=== PATIENT | male | born 1985 | race Caucasian/White ===

== ENCOUNTER → 2016-09-18 | Outpatient (CLI) | payer OTHER ==
--- NOTE | 2016-09-18 12:25 | DIAGNOSTIC IMAGING REPORT ---
LEFT SHOULDER 3 VIEWS HISTORY: Left shoulder pain. INJURY OF SHOULDER L COMPARISON: None. FINDINGS: There is no fracture or dislocation. Soft tissues are unremarkable. No radiopaque foreign bodies. The left clavicle is intact. IMPRESSION: No fracture or dislocation within the left shoulder. Electronically signed by: Trevor Venegas M.D. 09/18/2016 12:24 PM Dictated Date/Time: 09/18/2016 12:21 PM
== END | disposition home or self-care (01) ==
LOC: C.LABPVFM 11:55
PROVIDERS: ATTEND Nurse Practitioner
DX: S49.92XA Unspecified injury of left shoulder and upper arm, initial encounter (principal); X58.XXXA Exposure to other specified factors, initial encounter

== ENCOUNTER → 2016-10-26 | Outpatient (CLI) | payer OTHER ==
[2016-10-26 17:45] LABS: ALT/SGPT 52 U/L (12-78); BLOOD UREA NITROGEN 10 mg/dl (7-18); BUN/CREATININE RATIO 9.4 (10-20); CALCIUM 9.1 mg/dl (8.5-10.1); CARBON DIOXIDE 24 mmol/L (21-32); CHLORIDE 108 mmol/L (98-107); GLUCOSE 94 mg/dl (70-99); POTASSIUM 3.7 mmol/L (3.5-5.1); SODIUM 142 mmol/L (136-145)
[2016-10-26 18:05] LABS: ALKALINE PHOSPHATASE 66 U/L (45-117); AST/SGOT 28 U/L (15-37)
== END | disposition home or self-care (01) ==
LOC: C.LABPVFM 15:32
PROVIDERS: ATTEND Nurse Practitioner
DX: G43.109 Migraine with aura, not intractable, without status migrainosus (principal); R94.5 Abnormal results of liver function studies

== ENCOUNTER → 2017-03-30 | Outpatient (CLI) | payer OTHER ==
[2017-04-03 14:29] LABS: CHLAMYDIA TRACH RNA*** NOT DETECTED (NOT DETECTED); GC (NEIS GONORRHOEAE)RNA** NOT DETECTED (NOT DETECTED)
== END | disposition home or self-care (01) ==
LOC: C.LABPVFM 11:04
PROVIDERS: ATTEND Nurse Practitioner
DX: R30.0 Dysuria (principal); Z20.2 Contact with and (suspected) exposure to infections with a predominantly sexual mode of transmission

== ENCOUNTER 2017-11-14 00:12 | Emergency (ER) | payer OTHER ==
[~2017-11-14] VITALS: Ht 177.8 cm; Wt 80.0 kg
[~2017-11-14 00:12] MED LIST: ATV/1 PO; BUPR-79 PO; GABA-112 PO; LISD50CA4 PO; OMEP40CA41 PO; ZOLP10TA PO
[2017-11-14] MEDS ORDERED: SNT/10 PO (00:41)
[2017-11-14 00:43] VITALS: Ht 177.8 cm; Wt 80.0 kg
[2017-11-14] MEDS ORDERED: DIPHTHERIA/TETANUS/PERTUSSIS 0.5 ML SYR/VIAL IM. ONE (00:45)
[2017-11-14] MEDS ORDERED: LIDOCAINE/EPINEPHRINE 1% 20 ML VIAL INFIL ONE (00:45)
--- NOTE | 2017-11-14 00:50 | EMERGENCY ROOM VISIT NOTE ---
History Report prepared by Sofía: Chivo Ashford Under the Supervision of: Dr. Leonides Marques M.D. First contact with patient: 00:21 Chief Complaint: MENTAL HEALTH EVALUATION Stated Complaint: LACERATION History of Present Illness The patient is a 32 year old male who presents to the Emergency Room with complaints of an episode of intentionally cutting his left wrist tonight. The patient states that came into the emergency room tonight because he cut his left wrist. He notes that he did not want to do cut himself, but did it because he hates his tattoo. He reports that he was not feeling sad when he cut himself , and was not trying to kill himself. The patient states that he has a history of depression and has tried to kill himself once in the past. He notes that he has cut himself in the past but has never been admitted for depression/cutting. He reports that his previous lacerations have become infected multiple times. The patient states that he was drinking alcohol tonight but has not taken any drugs. The patient also complains of left elbow pain for the past few days. He denies any homicidal ideations and hallucinations. He notes that he takes Vyvanse, sonata, Lanturil, and lorazepam. Source of History: patient Onset: tonight Position: other (left wrist) Quality: other (intentional cutting) Timing: other (an episode) Note: The patient also complains of left elbow pain. He denies any homicidal ideations and hallucinations. Review of Systems See HPI for pertinent positives & negatives. A total of 10 systems reviewed and were otherwise negative. Past Medical & Surgical Medical Problems: (1) Alcohol abuse (2) Current drinker of alcohol (3) History of - depression (4) History of - suicidal ideation (5) Pancreatitis Family History No pertinent family history No pertinent family history stated. Social History Smoking Status: Current Every Day Smoker Alcohol Use: heavy Drug Use: marijuana Marital Status: single Housing Status: unknown Occupation Status: unemployed Current/Historical Medications Scheduled Bupropion (Wellbutrin Sr), 150 MG PO DAILY Cephalexin Monohydrate (Keflex), 500 MG PO QID Lisdexamfetamine Dimesylate (Vyvanse), 50 MG PO DAILY Omeprazole (Prilosec), 40 MG PO DAILY Zaleplon (Sonata), 20 MG PO HS Scheduled PRN Lorazepam (Ativan), 1 MG PO TID PRN for Anxiety/Agitation Allergies Coded Allergies: BEE STING (Verified Allergy, Severe, SHORTNESS OF BREATH, 11/14/17) SOAPCLEAN (Verified Allergy, Intermediate, HOSPITAL LAUNDRY DETERGENT-RASH , 11/14/17) Uncoded Allergies: PINE TREES (Allergy, Severe, SOB-HIVES AND RASH IF TOUCHES TREES, 06/09/17) Physical Exam Vital Signs Date Time Temp Pulse Resp B/P (MAP) Pulse Ox O2 Delivery O2 Flow Rate FiO2 11/14/17 04:41 80 18 113/70 96 11/14/17 03:00 80 18 92/43 94 Room Air 11/14/17 00:43 104 22 139/76 94 Room Air Physical Exam GENERAL: Patient is intoxicated appearing and in no acute distress, smells heavily of alcohol. EYES: No scleral icterus, unremarkable pupils. ENT: Mucous membranes moist, no nasal congestion. NECK: No masses appreciated, no meningismus, trachea is midline. RESPIRATORY: No dyspnea. Clear to auscultation and equal bilaterally. No wheeze , no rhonchi. CARDIOVASCULAR: Regular rate and rhythm. No murmurs, rubs, gallops appreciated. GASTROINTESTINAL: Abdomen soft, nontender, no peritonitis. Bowel sounds positive. No masses appreciated. BACK: No midline tenderness, no CVA tenderness EXTREMITIES: No cyanosis, no edema. Pain with ROM of right elbow without tenderness to palpation. NEUROLOGIC: Alert and oriented, no acute motor or sensory deficits, no focal weakness, cranial nerves grossly intact. SKIN: No rash, no jaundice, no diaphoresis. 7cm laceration to fatty tissue of left volar forearm with mild venous oozing, abrasion of left AR area (states that this was trauma related), multiple old healed lacerations on left forearm, distal N/V intact. PSYCH: Admits self harm, admits that he is drunk and wants to get rid of his tattoo, admits depression at baseline, denies suicidal/homicidal ideations. Medical Decision & Procedures ER Provider Diagnostic Interpretation: Radiology results and stated below per my review and interpretation: 3 VIEW RIGHT ELBOW X-RAY: No fracture. No dislocation. No foreign body. Laboratory Results 11/14/17 00:48 Red Blood Count 4.96, Mean Corpuscular Volume 90.9, Mean Corpuscular Hemoglobin 32.5, Mean Corpuscular Hemoglobin Concent 35.7, Mean Platelet Volume 9.4, Neutrophils (%) (Auto) 69.9, Lymphocytes (%) (Auto) 19.2, Monocytes (%) (Auto) 9.6, Eosinophils (%) (Auto) 0.8, Basophils (%) (Auto) 0.2, Neutrophils # (Auto) 7.66, Lymphocytes # (Auto) 2.10, Monocytes # (Auto) 1.05, Eosinophils # (Auto) 0.09, Basophils # (Auto) 0.02 11/14/17 00:48 Test 11/14/17 00:20 11/14/17 00:48 Urine Color YELLOW Urine Appearance CLEAR (CLEAR) Urine pH 5.5 (4.5-7.5) Urine Specific [place] 1.009 (1.000-1.030) Urine Protein NEG (NEG) Urine Glucose (UA) NEG (NEG) Urine Ketones NEG (NEG) Urine Occult Blood NEG (NEG) Urine Nitrite NEG (NEG) Urine Bilirubin NEG (NEG) Urine Urobilinogen NEG (NEG) Urine Leukocyte Esterase SMALL (NEG) Urine WBC (Auto) /hpf (0-5) Urine RBC (Auto) /hpf (0-4) Urine Hyaline Casts (Auto) /lpf (0-5) Urine Epithelial Cells (Auto) /lpf (0-5) Urine Bacteria (Auto) (NEG) Urine RBC 0-4 /hpf (0-4) Urine WBC 1-5 /hpf (0-5) Urine Epithelial Cells 20-30 /lpf (0-5) Urine Bacteria NEG (NEG) Urine Hyaline Casts 1-5 /lpf (0-5) Urine Opiates Screen NEG (NEG) Urine Methadone, Qualitative NEG (NEG) Urine Barbiturates NEG (NEG) Urine Phencyclidine (PCP) Level NEG (NEG) Ur Amphetamine/Methamphetamine NEG (NEG) MDMA (Ecstasy) Screen NEG (NEG) Urine Benzodiazepines Screen NEG (NEG) Urine Cocaine Metabolite NEG (NEG) Urine Marijuana (THC) NEG (NEG) White Blood Count 10.95 K/uL (4.8-10.8) Red Blood Count 4.96 M/uL (4.7-6.1) Hemoglobin 16.1 g/dL (14.0-18.0) Hematocrit 45.1 % (42-52) Mean Corpuscular Volume 90.9 fL (80-100) Mean Corpuscular Hemoglobin 32.5 pg (25-34) Mean Corpuscular Hemoglobin Concent 35.7 g/dl (32-36) Platelet Count 260 K/uL (130-400) Mean Platelet Volume 9.4 fL (7.4-10.4) Neutrophils (%) (Auto) 69.9 % Lymphocytes (%) (Auto) 19.2 % Monocytes (%) (Auto) 9.6 % Eosinophils (%) (Auto) 0.8 % Basophils (%) (Auto) 0.2 % Neutrophils # (Auto) 7.66 K/uL (1.4-6.5) Lymphocytes # (Auto) 2.10 K/uL (1.2-3.4) Monocytes # (Auto) 1.05 K/uL (0.11-0.59) Eosinophils # (Auto) 0.09 K/uL (0-0.5) Basophils # (Auto) 0.02 K/uL (0-0.2) RDW Standard Deviation 40.6 fL (36.4-46.3) RDW Coefficient of Variation 12.3 % (11.5-14.5) Immature Granulocyte % (Auto) 0.3 % Immature Granulocyte # (Auto) 0.03 K/uL (0.00-0.02) Anion Gap 6.0 mmol/L (3-11) Est Creatinine Clear Calc Drug Dose 102.3 ml/min Estimated GFR () 105.0 Estimated GFR (Non- 90.6 BUN/Creatinine Ratio 10.8 (10-20) Calcium Level 8.5 mg/dl (8.5-10.1) Total Bilirubin 0.2 mg/dl (0.2-1) Aspartate Amino Transf (AST/SGOT) 22 U/L (15-37) Alanine Aminotransferase (ALT/SGPT) 44 U/L (12-78) Alkaline Phosphatase 77 U/L (45-117) Total Protein 7.9 gm/dl (6.4-8.2) Albumin 4.0 gm/dl (3.4-5.0) Globulin 3.9 gm/dl (2.5-4.0) Albumin/Globulin Ratio 1.0 (0.9-2) Thyroid Stimulating Hormone (TSH) 0.813 uIu/ml (0.300-4.500) Salicylates Level < 1.7 mg/dl (2.8-20) Acetaminophen Level < 2 ug/ml (10-30) Ethyl Alcohol mg/dL 159.0 mg/dl (0-3) Laboratory results as reviewed by me. Medications Administered Medications (Trade) Dose Ordered Sig/Osiel Route Start Time Stop Time Status Last Admin Dose Admin Diphtheria/ Pertussis/Tetanus Vacc (Adacel Inj) 0.5 ml ONCE ONCE IM. 11/14/17 00:45 11/14/17 00:46 DC 11/14/17 01:06 0.5 ML Cephalexin Monohydrate (Keflex Cap) 500 mg NOW ONCE PO 11/14/17 01:45 11/14/17 01:46 DC 11/14/17 01:59 500 MG Procedure Location: Left forearm Total length: 8cm Complexity: Simple though is jagged in middle and there is previous scar tissue. Verbal consent was obtained after the risks and benefits were explained, including but not limited to bleeding, scarring, infection, pain, and bone/joint /nerve damage. At this time, the risks of the procedure are less than the risks of NOT performing the procedure. A time out was taken and the correct patient and site identified. The skin was prepped with Betadine. The target area was anesthetized with 4 ml of 1% lidocaine with epinephrine. Copious irrigation was performed using Betadine and normal saline. The skin was re-prepped with Betadine and a sterile field set. The wound was explored for foreign bodies and none found. Examination revealed no injury to deep structures such as tendons, bone, or significant blood vessels. Debridement was not performed. The wound edges were approximated using 16, 4-0 simple interrupted nylon sutures. Hemostasis and excellent approximation was achieved. Antibacterial ointment and a sterile dressing applied. Detailed wound care instructions and signs and symptoms of infection reviewed with the patient. No complications and the patient tolerated the procedure well. ED Course 0028: The patient was evaluated in room A5. A complete history and physical exam was performed. 0142: I sutured up the patient's laceration. 0400: The patient was evaluated by 3 Lele. 0500: Reevaluated the patient. Discussed results and discharge instructions: He verbalized understanding and agreement. The patient is ready for discharge. Medical Decision Differential: Mood Disorder, Overdose, Infectious, Electrolyte Abnormality, Cardiac, Hepatic, Endocrine, Toxicologic, Neurologic, amongst other pathologies entertained. 32 yr old male with alcohol abuse history arrives for evaluation of left forearm laceration he did to self after drinking tonight. No suicidal/ homicidal ideation. Long history of cutting. He does not feel he needs to be admitted. Makes clear this was not suicide attempt. No 302 on file. He is mildly intoxicated but after sobering still not suicidal and still wishing to go home. 3 [facility] agrees with this assessment. I did suture left forearm which was extensive though did not get to muscle nor tendon. Old scar tissue and jagged middle made suture line up a bit difficult. Patient tolerated this well. Notes history of multiple previous infections of wounds from sutures and thus will place on keflex after extensive washing. Unclear when last tetanus thus given adacel. Pt stable, cooperative and understands he needs to stop drinking given it's dangers to him. Medication Reconcilliation Current Medication List: was personally reviewed by me Blood Pressure Screening Patient's blood pressure: Normal blood pressure Blood pressure disposition: Did not require urgent referral Impression Primary Impression: Alcohol intoxication Additional Impressions: Deliberate self-cutting Laceration of left forearm Contusion of elbow, right [place]-milyjcm-[id number] (DTP) vaccination Scribe Attestation The scribe's documentation has been prepared under my direction and personally reviewed by me in its entirety. I confirm that the note above accurately reflects all work, treatment, procedures, and medical decision making performed by me. Departure Information Dispostion Home / Self-Care Prescriptions Cephalexin Monohydrate (Keflex) 500 Mg Cap 500 MG PO QID, #28 CAP Prov: Leonides Marques M.D. 11/14/17 Referrals No Doctor, Assigned (PCP) Forms HOME CARE DOCUMENTATION FORM, IMPORTANT VISIT INFORMATION Patient Instructions ED Laceration Ext Sutr Stap Tape, [facility] Additional Instructions We are always here to help. If you feel you are at risk of further harm to self or other call 911 or return immediately. You should stop drinking alcohol immediately. It is very dangerous for you to be drinking as you harm yourself when you do so. Please discuss your alcohol problem with your loved ones. Sutures should be removed by Emergency Department, Primary Care Provider or Urgent Care in about 10 days. Problem Qualifiers
[2017-11-14 00:59] LABS: BASO % 0.2 %; BASO ABS # 0.02 K/uL (0-0.2); EOS % 0.8 %; EOS ABS # 0.09 K/uL (0-0.5); HEMATOCRIT 45.1 % (42-52); HEMOGLOBIN 16.1 g/dL (14.0-18.0); IG# 0.03 K/uL (0.00-0.02); LYMPH % 19.2 %; MEAN CELL VOLUME 90.9 fL (80-100); MEAN CORPUSCULAR HEMOGLOBIN 32.5 pg (25-34); MEAN CORPUSCULAR HGB CONC 35.7 g/dl (32-36); MEAN PLATELET VOLUME 9.4 fL (7.4-10.4); MONO % 9.6 %; MONO ABS # 1.05 K/uL (0.11-0.59); NEUT % 69.9 %; NEUT ABS # 7.66 K/uL (1.4-6.5); PLATELET COUNT 260 K/uL (130-400); RED CELL DISTRIBUTION WIDTH CV 12.3 % (11.5-14.5); RED CELL DISTRIBUTION WIDTH SD 40.6 fL (36.4-46.3); WHITE BLOOD COUNT 10.95 K/uL (4.8-10.8)
[2017-11-14 01:31] LABS: CALCIUM 8.5 mg/dl (8.5-10.1); CREATININE 1.09 mg/dl (0.60-1.40); POTASSIUM 3.6 mmol/L (3.5-5.1)
[2017-11-14 01:41] LABS: TOTAL PROTEIN 7.9 gm/dl (6.4-8.2)
[2017-11-14] MEDS ORDERED: CEPHALEXIN MONOHYDRATE 250 MG CAP PO ONE (01:45)
[2017-11-14] MEDS ORDERED: CEPH500C PO (04:28)
[2017-11-14 04:41] VITALS: BP 113/70; PULSE 80; O2SAT 96
--- NOTE | 2017-11-14 07:32 | DIAGNOSTIC IMAGING REPORT ---
RIGHT ELBOW 3 VIEWS HISTORY: right elbow pain s/p fall COMPARISON: Right elbow 07/28/2015. FINDINGS: There is no fracture or dislocation. Soft tissues are unremarkable. No radiopaque foreign bodies. No elbow effusion. IMPRESSION: No fractures. Electronically signed by: Trevor Venegas M.D. 11/14/2017 7:30 AM Dictated Date/Time: 11/14/2017 7:30 AM
== END 2017-11-14 04:41 | disposition home or self-care (01) ==
LOC: EDBD 00:12 → C.EDA 00:14
DX: F10.920 Alcohol use, unspecified with intoxication, uncomplicated (principal); S51.812A Laceration without foreign body of left forearm, initial encounter; S50.01XA Contusion of right elbow, initial encounter; X78.9XXA Intentional self-harm by unspecified sharp object, initial encounter; Y92.9 Unspecified place or not applicable; Z23 Encounter for immunization; F32.9 Major depressive disorder, single episode, unspecified; Z79.899 Other long term (current) drug therapy; F17.210 Nicotine dependence, cigarettes, uncomplicated; Z91.030 Bee allergy status; Z91.048 Other nonmedicinal substance allergy status

== ENCOUNTER 2018-03-08 08:02 | Emergency (ER) | payer OTHER ==
[~2018-03-08] VITALS: Ht 175.3 cm; Wt 77.2 kg
[~2018-03-08 08:02] MED LIST changes: +CEPH500C PO; -GABA-112 PO; +SNT/10 PO; -ZOLP10TA PO
[2018-03-08 08:04] VITALS: TEMP 37.2; Ht 175.3 cm; Wt 77.2 kg
[2018-03-08] MEDS ORDERED: ONDANSETRON INJ 2 MG/ML 2 ML VIAL IV STA (08:26)
[2018-03-08] MEDS ORDERED: KETOROLAC TROMETHAMINE 30 MG/ML VIAL IV STA (08:26)
[2018-03-08 08:50] LABS: BASO % 0.1 %; BASO ABS # 0.03 K/uL (0-0.2); EOS % 0.2 %; EOS ABS # 0.05 K/uL (0-0.5); HEMATOCRIT 45.9 % (42-52); HEMOGLOBIN 15.9 g/dL (14.0-18.0); IG# 0.09 K/uL (0.00-0.02); LYMPH % 6.3 %; LYMPH ABS # 1.44 K/uL (1.2-3.4); MEAN CELL VOLUME 92.9 fL (80-100); MEAN CORPUSCULAR HEMOGLOBIN 32.2 pg (25-34); MEAN CORPUSCULAR HGB CONC 34.6 g/dl (32-36); MEAN PLATELET VOLUME 9.9 fL (7.4-10.4); MONO ABS # 2.74 K/uL (0.11-0.59); NEUT ABS # 18.54 K/uL (1.4-6.5); PLATELET COUNT 197 K/uL (130-400); RED CELL DISTRIBUTION WIDTH SD 47.6 fL (36.4-46.3); WHITE BLOOD COUNT 22.89 K/uL (4.8-10.8)
[2018-03-08 09:05] LABS: CALCIUM 9.4 mg/dl (8.5-10.1); CREATININE 1.05 mg/dl (0.60-1.40); POTASSIUM 3.3 mmol/L (3.5-5.1)
--- NOTE | 2018-03-08 09:15 | DIAGNOSTIC IMAGING REPORT ---
L ELBOW MIN 3 VIEWS ROUTINE CLINICAL HISTORY: left elbow pain COMPARISON STUDY: None. FINDINGS: Medial and anterior soft tissue swelling at the elbow. No joint effusion. Small bony exostosis within the distal shaft of the left humerus. No fracture or dislocation within the left elbow. IMPRESSION: 1. No fracture or dislocation within the left elbow. 2. Soft tissue swelling. Electronically signed by: Trevor Venegas M.D. 03/08/2018 9:14 AM Dictated Date/Time: 03/08/2018 9:12 AM
[2018-03-08] MEDS ORDERED: CEFAZOLIN IV 1,000 MG in DEXTROSE 5% 50ML 50 ML IV STA (09:16)
[2018-03-08] MEDS ORDERED: SODIUM CHLORIDE 0.9% 1000ML 1,000 ML IV STA (09:25)
[2018-03-08] MEDS ORDERED: PROMETHAZINE HCL INJ 25 MG in SODIUM CHLORIDE 0.9% 50ML 50 ML IV STA (09:25)
[2018-03-08] MEDS ORDERED: LISI-729 PO (09:57)
[2018-03-08] MEDS ORDERED: IBUP-1050 PO (09:58)
[2018-03-08] MEDS ORDERED: SULF800T23 PO (10:25)
[2018-03-08] MEDS ORDERED: CEPH500C PO (10:25)
[2018-03-08] MEDS ORDERED: ACETAMINOPHEN 500 MG TAB PO STA (10:28)
[2018-03-08] MEDS ORDERED: ACET300T3 PO (10:33)
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
[2018-03-08 10:59] VITALS: BP 152/94; PULSE 105; O2SAT 98
[2018-03-09] MEDS ORDERED: FLUT0.15 NAE (01:34)
[2018-03-09] MEDS ORDERED: LISD70CA PO (01:37)
[2018-03-11] MEDS ORDERED: SULF800T23 PO (15:14)
== END 2018-03-08 10:59 | disposition home or self-care (01) ==
LOC: C.EDB 08:03 → C.EDA 10:59
DX: L03.114 Cellulitis of left upper limb (principal); R11.0 Nausea; F17.200 Nicotine dependence, unspecified, uncomplicated; F32.9 Major depressive disorder, single episode, unspecified; Z91.030 Bee allergy status; Z91.048 Other nonmedicinal substance allergy status

== ENCOUNTER 2018-03-08 20:58 | Inpatient (IN) | payer OTHER ==
[~2018-03-08] VITALS: Ht 175.3 cm; Wt 76.3 kg
[~2018-03-08 20:58] MED LIST changes: +ACET300T3 PO; +IBUP-1050 PO; +LISI-729 PO; +SULF800T23 PO
[2018-03-08] MEDS ORDERED: PIPERACILLIN/TAZOBACTAM 4.5 GM/100ML D5W IV STA (21:38)
[2018-03-08] MEDS ORDERED: KETOROLAC TROMETHAMINE 30 MG/ML VIAL IV STA (21:38)
[2018-03-08] MEDS ORDERED: VANCOMYCIN IV 1,000 MG in SODIUM CHLORIDE 0.9% 250ML 250 ML IV STA (21:38)
[2018-03-08] MEDS ORDERED: VANCOMYCIN CONSULT ACTIVE PRN (21:45)
[2018-03-08 22:49] LABS: BASO % 0.2 %; BASO ABS # 0.03 K/uL (0-0.2); EOS % 0.9 %; EOS ABS # 0.12 K/uL (0-0.5); HEMATOCRIT 45.1 % (42-52); HEMOGLOBIN 15.2 g/dL (14.0-18.0); IG# 0.03 K/uL (0.00-0.02); LYMPH % 15.8 %; LYMPH ABS # 2.06 K/uL (1.2-3.4); MEAN CORPUSCULAR HEMOGLOBIN 31.7 pg (25-34); MEAN CORPUSCULAR HGB CONC 33.7 g/dl (32-36); MEAN PLATELET VOLUME 10.1 fL (7.4-10.4); MONO % 12.4 %; MONO ABS # 1.62 K/uL (0.11-0.59); NEUT % 70.5 %; PLATELET COUNT 200 K/uL (130-400); RED CELL DISTRIBUTION WIDTH CV 14.2 % (11.5-14.5); RED CELL DISTRIBUTION WIDTH SD 48.6 fL (36.4-46.3); WHITE BLOOD COUNT 13.06 K/uL (4.8-10.8)
[2018-03-08 23:12] LABS: ALBUMIN 3.8 gm/dl (3.4-5.0); CREATININE 0.99 mg/dl (0.60-1.40); POTASSIUM 3.3 mmol/L (3.5-5.1); TOTAL PROTEIN 7.9 gm/dl (6.4-8.2)
[2018-03-09] MEDS ORDERED: LORAZEPAM 1 MG TAB PO PRN (00:15)
[2018-03-09] MEDS ORDERED: VANCOMYCIN CONSULT ACTIVE PRN (00:15)
[2018-03-09] MEDS ORDERED: MAGNESIUM HYDROXIDE SUSP 30 ML UDC PO PRN (00:30)
[2018-03-09] MEDS ORDERED: ONDANSETRON INJ 2 MG/ML 2 ML VIAL IV PRN (00:30)
[2018-03-09] MEDS ORDERED: ALUMINUM/MAGNESIUM/SIMETH (MAALOX MAX) 30 ML UDC PO PRN (00:30)
[2018-03-09] MEDS: ACETAMINOPHEN 325 MG TAB PO PRN ×2 (00:51→20:57)
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
[2018-03-09] MEDS ORDERED: POLYETHYLENE (MIRALAX) 17 GM PACK PO PRN (01:00)
[2018-03-09] MEDS ORDERED: IV FLUIDS COMPLETED PRN (01:15)
[2018-03-09] MEDS ORDERED: FLUT0.15 NAE (01:34)
[2018-03-09] MEDS ORDERED: LISD70CA PO (01:37)
[2018-03-09 01:45] VITALS: BP 131/83; PULSE 77; TEMP 36.7; O2SAT 99; Ht 175.3 cm; Wt 76.3 kg
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
[2018-03-09] MEDS: D5NSS + 20MEQ KCL 1,000 ML IV SCH ×2 (02:33→08:57)
[2018-03-09] MEDS: VANCOMYCIN IV 1,250 MG in SODIUM CHLORIDE 0.9% 250ML 250 ML IV SCH ×3 (02:33→18:17)
[2018-03-09] MEDS: TRAMADOL HCL 50 MG TAB PO PRN ×3 (03:26→18:20)
[2018-03-09 07:07] VITALS: BP 116/72; PULSE 70; TEMP 36.6; O2SAT 97
--- NOTE | 2018-03-09 07:13 | Pharmacy Progress Note ---
Pharmacy Abx Initial Consult Date of Service Mar 09, 2018. Pharmacy Dosing Scope Date of Consult: 03/08/18 Consultation requested by: Dr. Severino Pharmacy is consulted to continue Vancomycin IV dosing therapy started in ED, order appropriate labs and adjust drug dose/frequency. Subjective The patient is a 32 year old male admitted on Mar 09, 2018 at 00:34 with worsening cellulitis to his left arm. He had recently been seen in the ER and given and RX for Keflex and discharged. He presents today with worsening symptoms and fever. Dr. Severino consults pharmacy for Vancomycin dosing in addition to Rocephin 1gm daily. Objective Height (Feet): 5 Height (Inches): 9.00 Weight (Kilograms): 76.300 Vital Signs (Past 12Hrs) Vital Signs Past 12 Hours Date Time Temp Pulse Resp B/P (MAP) Pulse Ox O2 Delivery O2 Flow Rate FiO2 03/09/18 01:45 Room Air 03/09/18 01:45 36.7 77 16 131/83 99 Room Air 03/09/18 01:37 70 18 131/89 99 03/09/18 00:26 83 18 139/85 98 Room Air 03/08/18 22:26 90 18 140/86 97 Room Air 03/08/18 21:02 36.8 107 20 162/92 93 Room Air Lab Results (24Hrs) Laboratory Tests (24 Hours) Test 03/08/18 22:20 03/09/18 06:43 White Blood Count 13.06 K/uL (4.8-10.8) H Red Blood Count 4.80 M/uL (4.7-6.1) Hemoglobin 15.2 g/dL (14.0-18.0) Hematocrit 45.1 % (42-52) Mean Corpuscular Volume 94.0 fL (80-100) Mean Corpuscular Hemoglobin 31.7 pg (25-34) Mean Corpuscular Hemoglobin Concent 33.7 g/dl (32-36) Platelet Count 200 K/uL (130-400) Mean Platelet Volume 10.1 fL (7.4-10.4) Neutrophils (%) (Auto) 70.5 % Lymphocytes (%) (Auto) 15.8 % Monocytes (%) (Auto) 12.4 % Eosinophils (%) (Auto) 0.9 % Basophils (%) (Auto) 0.2 % Neutrophils # (Auto) 9.20 K/uL (1.4-6.5) H Lymphocytes # (Auto) 2.06 K/uL (1.2-3.4) Monocytes # (Auto) 1.62 K/uL (0.11-0.59) H Eosinophils # (Auto) 0.12 K/uL (0-0.5) Basophils # (Auto) 0.03 K/uL (0-0.2) Micro Results Date/Time Source Procedure Growth Status 03/08/18 22:20 Blood Blood Culture Pending Received 03/08/18 22:00 Blood Blood Culture Pending Received Risk Factors for Resistance * Antimicrobial use within the last 90 days-Keflex from recent ED visit Assessment & Plan Assessment 32 year old male with worsening Cellulitis of (L) arm Plan Vancomycin IV * Loading dose: 1000 mg (13 mg/kg) in ED * Maintenance dose: 1250 mg IV ( 16 mg/kg) every 8 hours * Goal trough level: at least 15 mcg/mL * Trough level ordered prior to 1000 dose on 03/10/18 * I started maintenance dose sooner than normal based on subtherapeutic loading dose given in ED. Given patients age and renal function he should tolerate current dosing with no problems. Checking trough tomorrow. Pharmacy will continue to follow and will adjust dose/frequency as necessary. Thank you.
[2018-03-09 07:20] LABS: HEMATOCRIT 40.8 % (42-52); HEMOGLOBIN 13.5 g/dL (14.0-18.0); MEAN CELL VOLUME 95.1 fL (80-100); MEAN CORPUSCULAR HEMOGLOBIN 31.5 pg (25-34); MEAN CORPUSCULAR HGB CONC 33.1 g/dl (32-36); MEAN PLATELET VOLUME 10.1 fL (7.4-10.4); PLATELET COUNT 169 K/uL (130-400); RED CELL DISTRIBUTION WIDTH CV 14.6 % (11.5-14.5); RED CELL DISTRIBUTION WIDTH SD 50.1 fL (36.4-46.3); WHITE BLOOD COUNT 9.71 K/uL (4.8-10.8)
[2018-03-09 07:49] LABS: CREATININE 0.9 mg/dl (0.60-1.40); POTASSIUM 3.6 mmol/L (3.5-5.1)
[2018-03-09 08:00] VITALS: O2SAT 97
[2018-03-09] MEDS: CEFTRIAXONE SOD INJ 1 GM in DEXTROSE 5% ADD-VANTAGE 50ML 50 ML IV SCH (08:48)
[2018-03-09] MEDS: ENOXAPARIN 40 MG/0.4 ML SYR SQ SCH (08:52)
[2018-03-09] MEDS: BuPROPion SR 150 MG TABCR PO SCH ×3 (08:58→20:57)
[2018-03-09] MEDS: LISINOPRIL 5 MG TAB PO SCH (08:58)
[2018-03-09] MEDS: PANTOprazole SOD 40 MG TAB PO SCH (08:59)
[2018-03-09 14:49] VITALS: BP 144/83; PULSE 70; TEMP 36.9; O2SAT 97
[2018-03-09] MEDS ORDERED: LISDEXAMFETAMINE PO SCH (17:00)
[2018-03-09] MEDS ORDERED: LISDEXAMFETAMINE DIMESYLATE 70 MG PO SCH (17:00)
[2018-03-09] MEDS: ZALEPLON 5 MG CAP PO SCH (21:49)
--- NOTE | 2018-03-09 22:23 | Progress Note ---
Progress Note Date of Service Mar 09, 2018. Progress Note 32 yo male reports mild improvement from when his treatment was started. Wound was uncovered. no drainage appreciated. Lesion is erythematous and circular, and warm to touch. will continue current antibiotic treatment.
[2018-03-09 23:20] VITALS: BP 151/87; PULSE 96; TEMP 36.3; O2SAT 97
[2018-03-09 23:40] VITALS: O2SAT 97
[2018-03-10] MEDS: VANCOMYCIN IV 1,250 MG in SODIUM CHLORIDE 0.9% 250ML 250 ML IV SCH ×2 (02:30→10:22)
[2018-03-10 07:36] VITALS: BP 130/80; PULSE 76; TEMP 36.5; O2SAT 96
[2018-03-10] MEDS: ENOXAPARIN 40 MG/0.4 ML SYR SQ SCH (07:58)
[2018-03-10] MEDS: CEFTRIAXONE SOD INJ 1 GM in DEXTROSE 5% ADD-VANTAGE 50ML 50 ML IV SCH (07:59)
[2018-03-10] MEDS: PANTOprazole SOD 40 MG TAB PO SCH (09:08)
[2018-03-10] MEDS: BuPROPion SR 150 MG TABCR PO SCH ×3 (09:08→20:54)
[2018-03-10] MEDS: LISINOPRIL 5 MG TAB PO SCH (09:08)
[2018-03-10] MEDS: TRAMADOL HCL 50 MG TAB PO PRN ×3 (09:15→20:14)
[2018-03-10] MEDS ORDERED: VANCOMYCIN TROUGH ONE (09:30)
[2018-03-10 11:13] LABS: CREATININE 0.94 mg/dl (0.60-1.40)
--- NOTE | 2018-03-10 11:29 | Pharmacy Progress Note ---
Pharmacy Abx Dose Short Note Date of Service Mar 10, 2018. Assessment & Plan Assessment * 32 year old male receiving VANCOMYCIN IV (dosing per pharmacy) + CEFTRIAXONE IV for treatment of purulent L arm cellulitis * Day # 3 of antimicrobial therapy * L arm drainage cx from 03/08 is growing MSSA - one might consider d/c vancomycin and continue w/ ceftriaxone monotherapy * Afebrile, leukocytosis resolved, VSS * Renal fxn stable Plan Vancomycin * Trough level of 15.4 mcg/mL is therapeutic. Level was drawn at the appropriate time. Prior doses hung according to schedule * Continue dose of 1250 mg IV every 8 hours * Goal trough level for skin/soft tissue infxn due to organism with CAROL 2 : 15 to 20 mcg/mL * Will repeat level in 2-3 days if therapy is to continue Pharmacy will continue to follow and will adjust dose/frequency as necessary. Thank you.
[2018-03-10 15:17] VITALS: BP 131/81; PULSE 76; TEMP 36.7; O2SAT 96
[2018-03-10 20:19] VITALS: TEMP 37
[2018-03-10] MEDS ORDERED: TRAMADOL HCL 50 MG TAB PO STA (20:41)
[2018-03-10] MEDS: ZALEPLON 5 MG CAP PO SCH (20:54)
[2018-03-10] MEDS: SULFAMETHOXAZOLE/TRIMETHOPRIM DS 800/160MG TAB PO SCH (20:54)
[2018-03-10 21:04] LABS: BASO % 0.4 %; BASO ABS # 0.05 K/uL (0-0.2); EOS % 1.9 %; EOS ABS # 0.22 K/uL (0-0.5); HEMATOCRIT 41.3 % (42-52); HEMOGLOBIN 13.8 g/dL (14.0-18.0); IG# 0.03 K/uL (0.00-0.02); LYMPH % 14.2 %; LYMPH ABS # 1.64 K/uL (1.2-3.4); MEAN CELL VOLUME 95.2 fL (80-100); MEAN CORPUSCULAR HEMOGLOBIN 31.8 pg (25-34); MEAN PLATELET VOLUME 9.6 fL (7.4-10.4); MONO % 10.9 %; MONO ABS # 1.26 K/uL (0.11-0.59); NEUT % 72.3 %; NEUT ABS # 8.35 K/uL (1.4-6.5); PLATELET COUNT 207 K/uL (130-400); RED CELL DISTRIBUTION WIDTH CV 14.1 % (11.5-14.5); RED CELL DISTRIBUTION WIDTH SD 48.6 fL (36.4-46.3); WHITE BLOOD COUNT 11.55 K/uL (4.8-10.8)
--- NOTE | 2018-03-10 21:17 | DIAGNOSTIC IMAGING REPORT ---
L ELBOW MIN 3 VIEWS ROUTINE CLINICAL HISTORY: Worsening pain COMPARISON: None. DISCUSSION: The bones and joint spaces appear intact. There is no evidence of fracture, dislocation or bony disease. There is no evidence for soft tissue swelling. Small benign bony exostosis distal humeral shaft. IMPRESSION: Negative study. The above report was generated using voice recognition software. It may contain grammatical, syntax or spelling errors. Electronically signed by: Edwardo Gardner M.D. 03/10/2018 9:15 PM Dictated Date/Time: 03/10/2018 9:13 PM
[2018-03-10 21:20] LABS: MEAN CORPUSCULAR HGB CONC 33.4 g/dl (32-36)
[2018-03-10 23:05] VITALS: BP 132/84; PULSE 86; TEMP 37.2; O2SAT 95
[2018-03-10 23:40] VITALS: O2SAT 95
[2018-03-11] MEDS: TRAMADOL HCL 50 MG TAB PO PRN ×3 (04:07→12:59)
[2018-03-11 06:22] LABS: CREATININE 1.05 mg/dl (0.60-1.40)
[2018-03-11 07:48] VITALS: BP 135/85; PULSE 77; TEMP 37; O2SAT 94
[2018-03-11] MEDS: CEFTRIAXONE SOD INJ 1 GM in DEXTROSE 5% ADD-VANTAGE 50ML 50 ML IV SCH (07:58)
[2018-03-11] MEDS: ENOXAPARIN 40 MG/0.4 ML SYR SQ SCH (07:59)
[2018-03-11] MEDS: PANTOprazole SOD 40 MG TAB PO SCH (08:47)
[2018-03-11] MEDS: BuPROPion SR 150 MG TABCR PO SCH ×2 (08:48→13:53)
[2018-03-11] MEDS: SULFAMETHOXAZOLE/TRIMETHOPRIM DS 800/160MG TAB PO SCH (08:48)
[2018-03-11] MEDS: LISINOPRIL 5 MG TAB PO SCH (08:49)
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
[2018-03-11] MEDS ORDERED: SULF800T23 PO (15:14)
--- NOTE | 2018-03-11 15:45 | Discharge Instructions ---
Discharge Instructions Date of Service Mar 11, 2018. Admission Reason for Admission: Cellulitis Of Arm, Left Discharge Discharge Diagnosis / Problem: Cellulitis of left arm Discharge Goals Goal(s): Decrease discomfort, Improve function Activity Recommendations Activity Limitations: resume your previous activity . Instructions / Follow-Up Instructions / Follow-Up Put a thin layer of antibiotic ointment on the cut or scrape. ?Cover the cut or scrape with a bandage or gauze. Keep the bandage clean and dry. Change the bandage 1 to 2 times every day until your cut or scrape heals. ?Watch for signs that your cut or scrape is infected. Most cuts and scrapes heal on their own within 7 to 10 days. As your cut or scrape heals, a scab will form. Be sure to leave the scab alone and not pick at it. Followup [facility] wound care within 1 week Current Hospital Diet Patient's current hospital diet: Regular Diet Discharge Diet Recommended Diet: Regular Diet, Low Fiber Diet Pending Studies Studies pending at discharge: no Medical Emergencies . Who to Call and When: Medical Emergencies: If at any time you feel your situation is an emergency, please call 911 immediately. . Non-Emergent Contact Non-Emergency issues call your: Primary Care Provider Call Non-Emergent contact if: you have a fever, wound has increased drainage, wound has increased redness, wound has increased pain, you have any medication questions . . "Provider Documentation" section prepared by Sarbjit Patel. .
[2018-03-11 15:55] VITALS: BP 135/85; PULSE 77; TEMP 37; O2SAT 94
== END 2018-03-11 17:10 | disposition home or self-care (01) | DRG 603 ==
LOC: C.EDB 21:00 → C.MSN 03-09 00:34 → ENRESERV 03-09 01:19 → OBSVTOIN 03-09 16:07
PROVIDERS: ADMIT Internal Medicine; ATTEND Internal Medicine Sports Medicine
DX: L03.114 Cellulitis of left upper limb (principal); I10 Essential (primary) hypertension; F32.9 Major depressive disorder, single episode, unspecified; F90.9 Attention-deficit hyperactivity disorder, unspecified type; F81.9 Developmental disorder of scholastic skills, unspecified; F17.200 Nicotine dependence, unspecified, uncomplicated; Z79.899 Other long term (current) drug therapy; Z91.048 Other nonmedicinal substance allergy status; Z91.030 Bee allergy status

== ENCOUNTER 2018-03-20 20:38 | Inpatient (IN) | payer OTHER ==
[~2018-03-20] VITALS: Ht 175.3 cm; Wt 78.2 kg
[~2018-03-20 20:38] MED LIST changes: -ATV/1 PO; -BUPR-79 PO; -CEPH500C PO; -IBUP-1050 PO; -LISI-729 PO; -OMEP40CA41 PO; -SNT/10 PO
[2018-03-20] MEDS ORDERED: VANCOMYCIN 1GM ED/ASU OMNICELL IV STA (21:43)
[2018-03-20] MEDS ORDERED: CEFTRIAXONE SOD INJ 1 GM ADDVIAL IV STA (21:43)
[2018-03-20 22:12] LABS: BASO % 0.3 %; BASO ABS # 0.04 K/uL (0-0.2); EOS % 1.2 %; EOS ABS # 0.17 K/uL (0-0.5); HEMATOCRIT 47.5 % (42-52); HEMOGLOBIN 16.7 g/dL (14.0-18.0); IG# 0.16 K/uL (0.00-0.02); LYMPH % 20.4 %; LYMPH ABS # 3.01 K/uL (1.2-3.4); MEAN CELL VOLUME 93.3 fL (80-100); MEAN CORPUSCULAR HEMOGLOBIN 32.8 pg (25-34); MEAN CORPUSCULAR HGB CONC 35.2 g/dl (32-36); MONO % 8.3 %; MONO ABS # 1.22 K/uL (0.11-0.59); NEUT % 68.7 %; NEUT ABS # 10.12 K/uL (1.4-6.5); PLATELET COUNT 261 K/uL (130-400); RED CELL DISTRIBUTION WIDTH CV 13.8 % (11.5-14.5); RED CELL DISTRIBUTION WIDTH SD 47.3 fL (36.4-46.3); WHITE BLOOD COUNT 14.72 K/uL (4.8-10.8)
[2018-03-20 22:29] LABS: CALCIUM 9.1 mg/dl (8.5-10.1); CREATININE 1.3 mg/dl (0.60-1.40); POTASSIUM 3.6 mmol/L (3.5-5.1)
[2018-03-20] MEDS ORDERED: ACETAMINOPHEN 500 MG TAB PO STA (22:46)
[2018-03-20] MEDS ORDERED: VANCOMYCIN CONSULT ACTIVE PRN (23:30)
[2018-03-20] MEDS ORDERED: ONDANSETRON INJ 2 MG/ML 2 ML VIAL IV PRN (23:30)
[2018-03-20] MEDS ORDERED: IBUPROFEN 200 MG TAB PO PRN (23:30)
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
[2018-03-21 00:15] VITALS: BMI 25.5
[2018-03-21 00:24] VITALS: BP 148/95; PULSE 77; TEMP 36.9; O2SAT 96
--- NOTE | 2018-03-21 00:40 | EMERGENCY ROOM VISIT NOTE ---
History Report prepared by Sofía: Ector Medina Under the Supervision of: Dr. Armando Verdugo M.D. First contact with patient: 21:38 Chief Complaint: INFECTION Stated Complaint: INFECTION ON FOREARM GETTING WORSE Nursing Triage Summary: Left forearm cellulitis. Here admitted last week. Instructed to come to Ed if symptoms worsened. Infection has line drawn. Redness minimally outside line. History of Present Illness The patient is a 32 year old male who presents to the Emergency Room with complaints of a worsening infection on his left forearm that the patient was first admitted for on March 09 and stayed for 2 days. During his last visit the infection was ruled as staph aureus and methicillin sensitive. He notes that he is on Bactrim since his hospital admission, but confesses to missing a few doses. He visited the wound center yesterday and they said if it got worse to go to the ED. He states that he currently has no fever or vomiting but does feel nauseous and fatigued. Source of History: patient Onset: 11 days ago Position: arm (left) Timing: worsening Associated Symptoms: + nausea, + fatigue, No fevers, No vomiting Review of Systems See HPI for pertinent positives & negatives. A total of 10 systems reviewed and were otherwise negative. Past Medical & Surgical Medical Problems: (1) Alcohol abuse (2) Cellulitis of arm, left (3) Current drinker of alcohol (4) History of - depression (5) History of - suicidal ideation (6) Pancreatitis Family History No pertinent family history Social History Smoking Status: Current Every Day Smoker Alcohol Use: heavy Drug Use: none Marital Status: single Housing Status: unknown Occupation Status: disabled Current/Historical Medications Scheduled Bupropion (Wellbutrin Sr), 150 MG PO TID Ibuprofen (Advil), 400 MG PO UD Lisdexamfetamine Dimesylate (Vyvanse), 70 MG PO QAM Lisinopril (Zestril), 5 MG PO QAM Omeprazole (Prilosec), 40 MG PO QAM Sulfa/Trimethoprim (Bactrim Ds 800MG/160MG), 1 TAB PO BID Zaleplon (Sonata), 20 MG PO HS Scheduled PRN Fluticasone Propionate (Nasal) (Flonase Allergy Relief), 1 SPRAY JESUS MANUEL BID PRN for CONGESTION Lorazepam (Ativan), 1 MG PO BID PRN for Anxiety/Agitation Allergies Coded Allergies: BEE STING (Verified Allergy, Severe, SHORTNESS OF BREATH, 03/08/18) SOAPCLEAN (Verified Allergy, Intermediate, HOSPITAL LAUNDRY DETERGENT-RASH , 03/08/18) Uncoded Allergies: PINE TREES (Allergy, Severe, SOB-HIVES AND RASH IF TOUCHES TREES, 06/09/17) Physical Exam Vital Signs Date Time Temp Pulse Resp B/P (MAP) Pulse Ox O2 Delivery O2 Flow Rate FiO2 03/20/18 22:37 76 16 143/81 98 Room Air 03/20/18 20:48 36.8 107 20 163/92 99 Room Air Physical Exam GENERAL: Patient is in no acute distress. HEENT: No acute trauma, normocephalic atraumatic, mucous membranes moist, no nasal congestion, no scleral icterus. NECK: No stridor, no adenopathy, no meningismus, trachea is midline. LUNGS: Clear to auscultation bilaterally, no wheeze, no rhonchi, breath sounds equal. HEART: Without murmurs gallops or rubs, regular rate and rhythm. ABDOMEN: Soft, nontender, bowel sounds positive, no hernias, no peritonitis. EXTREMITIES: Erythema with swelling and warmth on left forearm, no drainage, NVI distally in LUE, erythema has spread beyond the outline placed at the wound center. NEUROLOGIC: Oriented x 3, no acute motor or sensory deficits, no focal weakness. SKIN: No jaundice, no diaphoresis. Medical Decision & Procedures Laboratory Results 03/20/18 21:55 Red Blood Count 5.09, Mean Corpuscular Volume 93.3, Mean Corpuscular Hemoglobin 32.8, Mean Corpuscular Hemoglobin Concent 35.2, Mean Platelet Volume 10.0, Neutrophils (%) (Auto) 68.7, Lymphocytes (%) (Auto) 20.4, Monocytes (%) (Auto) 8.3, Eosinophils (%) (Auto) 1.2, Basophils (%) (Auto) 0.3, Neutrophils # (Auto) 10.12, Lymphocytes # (Auto) 3.01, Monocytes # (Auto) 1.22, Eosinophils # (Auto) 0.17, Basophils # (Auto) 0.04 03/20/18 21:55 Test 03/20/18 21:55 White Blood Count 14.72 K/uL (4.8-10.8) Red Blood Count 5.09 M/uL (4.7-6.1) Hemoglobin 16.7 g/dL (14.0-18.0) Hematocrit 47.5 % (42-52) Mean Corpuscular Volume 93.3 fL (80-100) Mean Corpuscular Hemoglobin 32.8 pg (25-34) Mean Corpuscular Hemoglobin Concent 35.2 g/dl (32-36) Platelet Count 261 K/uL (130-400) Mean Platelet Volume 10.0 fL (7.4-10.4) Neutrophils (%) (Auto) 68.7 % Lymphocytes (%) (Auto) 20.4 % Monocytes (%) (Auto) 8.3 % Eosinophils (%) (Auto) 1.2 % Basophils (%) (Auto) 0.3 % Neutrophils # (Auto) 10.12 K/uL (1.4-6.5) Lymphocytes # (Auto) 3.01 K/uL (1.2-3.4) Monocytes # (Auto) 1.22 K/uL (0.11-0.59) Eosinophils # (Auto) 0.17 K/uL (0-0.5) Basophils # (Auto) 0.04 K/uL (0-0.2) RDW Standard Deviation 47.3 fL (36.4-46.3) RDW Coefficient of Variation 13.8 % (11.5-14.5) Immature Granulocyte % (Auto) 1.1 % Immature Granulocyte # (Auto) 0.16 K/uL (0.00-0.02) Anion Gap 10.0 mmol/L (3-11) Est Creatinine Clear Calc Drug Dose 83.1 ml/min Estimated GFR () 84.9 Estimated GFR (Non- 73.2 BUN/Creatinine Ratio 11.1 (10-20) Calcium Level 9.1 mg/dl (8.5-10.1) Magnesium Level 2.3 mg/dl (1.8-2.4) Laboratory results reviewed by me. Medications Administered Medications (Trade) Dose Ordered Sig/Osiel Route Start Time Stop Time Status Last Admin Dose Admin Vancomycin HCl (Vancomycin 1gm Ed/Asu Omnicell) 1 gm NOW STAT IV 03/20/18 21:43 03/20/18 21:47 DC 03/20/18 22:37 1 GM Ceftriaxone Sodium (Rocephin Inj) 1 gm NOW STAT IV 03/20/18 21:43 03/20/18 21:47 DC 03/20/18 22:07 1 GM Acetaminophen (Tylenol Tab) 1,000 mg NOW STAT PO 03/20/18 22:46 03/20/18 22:47 DC 03/20/18 23:00 1,000 MG ED Course 2140: The patient was evaluated in room A10. A complete history and physical exam was performed. 2239: Upon reexamination the patient is resting in bed with family around. I discussed results and treatment plan with the patient. He verbalizes agreement and understanding. I spoke with the hospitalist. We discussed the patient's results and findings. The patient will be evaluated for further management. 2243: I updated the patient and his family that he will be hospitalized. Medical Decision Differential Diagnosis Cellulitis, failed outpatient treatment, neurovascular compromise, abscess, and medication noncompliance Patient does have a leukocytosis at 14.7. This could be consistent with infection. No worrisome anemia. No significant electrolyte abnormality, kidney failure or hepatitis. On exam, patient does have a worsening cellulitis along the left upper extremity. He is currently taking Bactrim. He was just to the wound center and the erythema has spread beyond the outlined area. Patient appears to be failing outpatient treatment for his cellulitis. I do think a hospital stay is warranted. He received IV vancomycin, IV ceftriaxone and some oral Tylenol. I talked him about my findings, I spoke with the patient case manager. The on-call hospitalist was consulted. Medication Reconcilliation Current Medication List: was personally reviewed by me Blood Pressure Screening Patient's blood pressure: Elevated blood pressure Refer to Hospitalist Consults Time Called: [phone] Consulting Physician: Dr. Ray Returned Call: [phone] Discussed the patient's case with Dr. Ray. The patient will be evaluated for further management by her. Impression Primary Impression: Cellulitis of arm, left Additional Impression: Failure of outpatient treatment Scribe Attestation The scribe's documentation has been prepared under my direction and personally reviewed by me in its entirety. I confirm that the note above accurately reflects all work, treatment, procedures, and medical decision making performed by me. Departure Information Dispostion Other (Admitted to [facility]) Referrals Briana Ordoñez C.R.NGonzalezP (PCP) Forms HOME CARE DOCUMENTATION FORM, IMPORTANT VISIT INFORMATION, WORK / SCHOOL INSTRUCTIONS Patient Instructions [facility] Problem Qualifiers
[2018-03-21] MEDS: LORAZEPAM 1 MG TAB PO PRN ×2 (01:34→23:58)
[2018-03-21] MEDS: VANCOMYCIN IV 1,250 MG in SODIUM CHLORIDE 0.9% 250ML 250 ML IV SCH ×3 (01:39→18:20)
[2018-03-21] MEDS ORDERED: ZOLPIDEM TARTRATE 5 MG TAB PO PRN (03:00)
[2018-03-21] MEDS: ACETAMINOPHEN 325 MG TAB PO PRN ×3 (03:52→23:58)
[2018-03-21] MEDS ORDERED: IV FLUIDS COMPLETED PRN (06:00)
[2018-03-21 06:05] LABS: BASO % 0.3 %; BASO ABS # 0.03 K/uL (0-0.2); EOS % 1.8 %; EOS ABS # 0.21 K/uL (0-0.5); HEMATOCRIT 44.8 % (42-52); HEMOGLOBIN 15.2 g/dL (14.0-18.0); IG# 0.09 K/uL (0.00-0.02); LYMPH % 23.3 %; LYMPH ABS # 2.73 K/uL (1.2-3.4); MEAN CELL VOLUME 93.1 fL (80-100); MEAN CORPUSCULAR HEMOGLOBIN 31.6 pg (25-34); MEAN CORPUSCULAR HGB CONC 33.9 g/dl (32-36); MEAN PLATELET VOLUME 9.8 fL (7.4-10.4); MONO % 7.9 %; MONO ABS # 0.93 K/uL (0.11-0.59); NEUT % 65.9 %; NEUT ABS # 7.71 K/uL (1.4-6.5); PLATELET COUNT 218 K/uL (130-400); RED CELL DISTRIBUTION WIDTH CV 13.8 % (11.5-14.5); RED CELL DISTRIBUTION WIDTH SD 46.9 fL (36.4-46.3)
[2018-03-21 06:38] LABS: CALCIUM 8.5 mg/dl (8.5-10.1); CREATININE 1.03 mg/dl (0.60-1.40); POTASSIUM 3.6 mmol/L (3.5-5.1)
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
[2018-03-21 07:20] VITALS: BP 131/80; PULSE 82; TEMP 36.6; O2SAT 96
[2018-03-21] MEDS: BuPROPion SR 150 MG TABCR PO SCH ×3 (09:02→21:56)
[2018-03-21] MEDS: LISINOPRIL 5 MG TAB PO SCH (09:02)
[2018-03-21] MEDS: LACTOBACILLUS ACIDOPHILUS (FLORANEX) TAB PO SCH ×3 (09:02→18:19)
[2018-03-21] MEDS: NICOTINE 7 MG/24 HR TDSY TD SCH (09:03)
[2018-03-21] MEDS: PANTOprazole SOD 40 MG TAB PO SCH (09:03)
[2018-03-21 09:26] VITALS: Ht 175.3 cm; Wt 78.2 kg
--- NOTE | 2018-03-21 11:15 | Pharmacy Progress Note ---
Pharmacy Abx Initial Consult Date of Service Mar 21, 2018. Pharmacy Dosing Scope Date of Consult: 03/21/18 Consultation requested by: Dr. Penny Ray Pharmacy is consulted to initiate vancomycin IV/PO dosing therapy, order appropriate labs and adjust drug dose/frequency. Subjective The patient is a 32 year old male admitted on Mar 20, 2018 at 23:22. Objective Height (Feet): 5 Height (Inches): 9.00 Weight (Kilograms): 78.200 Vital Signs (Past 12Hrs) Vital Signs Past 12 Hours Date Time Temp Pulse Resp B/P (MAP) Pulse Ox O2 Delivery O2 Flow Rate FiO2 03/21/18 07:20 36.6 82 16 131/80 (97) 96 Room Air 03/21/18 01:05 Room Air 03/21/18 00:24 36.9 77 20 148/95 (112) 96 Room Air 03/21/18 00:15 Room Air 03/21/18 00:06 85 18 127/89 96 Lab Results (24Hrs) Laboratory Tests (24 Hours) Test 03/21/18 05:42 White Blood Count 11.70 K/uL (4.8-10.8) H Red Blood Count 4.81 M/uL (4.7-6.1) Hemoglobin 15.2 g/dL (14.0-18.0) Hematocrit 44.8 % (42-52) Mean Corpuscular Volume 93.1 fL (80-100) Mean Corpuscular Hemoglobin 31.6 pg (25-34) Mean Corpuscular Hemoglobin Concent 33.9 g/dl (32-36) Platelet Count 218 K/uL (130-400) Mean Platelet Volume 9.8 fL (7.4-10.4) Neutrophils (%) (Auto) 65.9 % Lymphocytes (%) (Auto) 23.3 % Monocytes (%) (Auto) 7.9 % Eosinophils (%) (Auto) 1.8 % Basophils (%) (Auto) 0.3 % Neutrophils # (Auto) 7.71 K/uL (1.4-6.5) H Lymphocytes # (Auto) 2.73 K/uL (1.2-3.4) Monocytes # (Auto) 0.93 K/uL (0.11-0.59) H Eosinophils # (Auto) 0.21 K/uL (0-0.5) Basophils # (Auto) 0.03 K/uL (0-0.2) Risk Factors for Resistance * Hospitalization for 48 hours or more within the past 90 days Assessment & Plan Assessment * 32 year old male who presented to [facility] on 03/20 with redness and swelling of left forearm * Problem began approximately two weeks ago after patient sustained a fall outside; Initially placed on Keflex for suspected cellulitis * Culture +MSSA during that hospital admission and therefore patient was discharged to home with a ten day course of Bactrim * Patient admits to medication non-adherence, stating he missed two to three days of Bactrim therapy * WBCs upon admission 14.72, afebrile, hemodynamically stable, no evidence of sepsis or systemic infection Plan Vancomycin IV * Loading dose: 1,000 mg (12.7 mg/kg) * Estimated PK parameters: Vd 0.7, ke 0.09 hr-1, t1/2 8 hr * Maintenance dose: 1250 mg IV (15.8 mg/kg) every 8 hours * Goal trough level: 15 to 20 mcg/mL * Trough level ordered for 03/22/18 at 0930 prior to the 5th dose Ceftriaxone * Patient is also receiving ceftriaxone 1g Q24H, first dose last night at 2200 in the ED Pharmacy will continue to follow and will adjust dose/frequency as necessary. Thank you.
[2018-03-21 16:01] VITALS: BP 119/75; PULSE 74; TEMP 36.7; O2SAT 97
[2018-03-21 16:16] VITALS: O2SAT 97
[2018-03-21] MEDS ORDERED: ZALEPLON 5 MG CAP PO SCH (21:00)
[2018-03-21] MEDS ORDERED: CEFTRIAXONE SOD INJ 1 GM in DEXTROSE 5% ADD-VANTAGE 50ML 50 ML IV SCH (22:00)
[2018-03-21 23:48] VITALS: BP 133/78; PULSE 85; TEMP 36.7; O2SAT 96
[2018-03-22] MEDS: VANCOMYCIN IV 1,250 MG in SODIUM CHLORIDE 0.9% 250ML 250 ML IV SCH ×2 (02:05→10:48)
[2018-03-22 05:57] LABS: BASO % 0.5 %; BASO ABS # 0.05 K/uL (0-0.2); EOS % 2.1 %; HEMATOCRIT 44.7 % (42-52); HEMOGLOBIN 15.1 g/dL (14.0-18.0); IG# 0.07 K/uL (0.00-0.02); LYMPH % 22.9 %; LYMPH ABS # 2.21 K/uL (1.2-3.4); MEAN CELL VOLUME 94.9 fL (80-100); MEAN CORPUSCULAR HEMOGLOBIN 32.1 pg (25-34); MEAN CORPUSCULAR HGB CONC 33.8 g/dl (32-36); MEAN PLATELET VOLUME 10.2 fL (7.4-10.4); MONO % 7.9 %; MONO ABS # 0.76 K/uL (0.11-0.59); NEUT % 65.9 %; NEUT ABS # 6.38 K/uL (1.4-6.5); PLATELET COUNT 212 K/uL (130-400); RED CELL DISTRIBUTION WIDTH CV 14.2 % (11.5-14.5); WHITE BLOOD COUNT 9.67 K/uL (4.8-10.8)
[2018-03-22 06:36] LABS: CALCIUM 8.3 mg/dl (8.5-10.1); CREATININE 1.09 mg/dl (0.60-1.40); POTASSIUM 3.6 mmol/L (3.5-5.1)
[2018-03-22 07:25] VITALS: BP 126/80; PULSE 72; TEMP 36.7; O2SAT 97
[2018-03-22] MEDS: PANTOprazole SOD 40 MG TAB PO SCH (08:25)
[2018-03-22] MEDS: LACTOBACILLUS ACIDOPHILUS (FLORANEX) TAB PO SCH ×2 (08:27→12:30)
[2018-03-22] MEDS: LISINOPRIL 5 MG TAB PO SCH (08:28)
[2018-03-22] MEDS: NICOTINE 7 MG/24 HR TDSY TD SCH (08:28)
[2018-03-22] MEDS: BuPROPion SR 150 MG TABCR PO SCH ×2 (08:28→15:44)
[2018-03-22 08:30] VITALS: O2SAT 97
[2018-03-22] MEDS ORDERED: VANCOMYCIN TROUGH ONE (09:30)
--- NOTE | 2018-03-22 12:48 | Pharmacy Progress Note ---
Pharmacy Antibiotic Prog Note Date of Service Mar 22, 2018. Subjective The patient is currently receiving Vancomycin 1250mg IV every 8 hours for left forearm cellulitis. The patient is currently on day # 3 of IV Vancomycin and Rocephin therapy. Objective Height (Feet): 5 Height (Inches): 9.00 Weight (Kilograms): 78.200 Levels: Item Value Date Time Vancomycin Level Trough 15.3 mcg/ml 03/22/18 0935 Lab Results (24hrs): Test 03/22/18 05:20 03/22/18 09:35 White Blood Count 9.67 K/uL (4.8-10.8) Red Blood Count 4.71 M/uL (4.7-6.1) Hemoglobin 15.1 g/dL (14.0-18.0) Hematocrit 44.7 % (42-52) Mean Corpuscular Volume 94.9 fL (80-100) Mean Corpuscular Hemoglobin 32.1 pg (25-34) Mean Corpuscular Hemoglobin Concent 33.8 g/dl (32-36) Platelet Count 212 K/uL (130-400) Mean Platelet Volume 10.2 fL (7.4-10.4) Neutrophils (%) (Auto) 65.9 % Lymphocytes (%) (Auto) 22.9 % Monocytes (%) (Auto) 7.9 % Eosinophils (%) (Auto) 2.1 % Basophils (%) (Auto) 0.5 % Neutrophils # (Auto) 6.38 K/uL (1.4-6.5) Lymphocytes # (Auto) 2.21 K/uL (1.2-3.4) Monocytes # (Auto) 0.76 K/uL (0.11-0.59) Eosinophils # (Auto) 0.20 K/uL (0-0.5) Basophils # (Auto) 0.05 K/uL (0-0.2) RDW Standard Deviation 49.0 fL (36.4-46.3) RDW Coefficient of Variation 14.2 % (11.5-14.5) Immature Granulocyte % (Auto) 0.7 % Immature Granulocyte # (Auto) 0.07 K/uL (0.00-0.02) Sodium Level 138 mmol/L (136-145) Potassium Level 3.6 mmol/L (3.5-5.1) Chloride Level 105 mmol/L (98-107) Carbon Dioxide Level 22 mmol/L (21-32) Anion Gap 11.0 mmol/L (3-11) Blood Urea Nitrogen 13 mg/dl (7-18) Creatinine 1.09 mg/dl (0.60-1.40) Est Creatinine Clear Calc Drug Dose 99.1 ml/min Estimated GFR () 105.0 Estimated GFR (Non- 90.6 BUN/Creatinine Ratio 11.5 (10-20) Random Glucose 100 mg/dl (70-99) Calcium Level 8.3 mg/dl (8.5-10.1) Vancomycin Level Trough 15.3 mcg/ml (SEE COMMENT) Recent Pertinent Medications Rocephin 1gm IV Q24 Assessment & Plan This Vancomycin trough level of 15.3 is Therapeutic Continue Vancomycin 1250 mg IV every 8 hours. Goal trough level for cellulitis is 15mcg/mL. Trough level has been ordered for: 2017 prior to 1000 dose. Pharmacy will continue to follow and will adjust dose/frequency as necessary. Thank you
[2018-03-22 15:24] VITALS: BP 119/73; PULSE 71; TEMP 36.7; O2SAT 96
[2018-03-22] MEDS ORDERED: DXY100 PO (15:54)
--- NOTE | 2018-03-22 15:55 | Discharge Instructions ---
Discharge Instructions Date of Service Mar 22, 2018. Admission Reason for Admission: Cellulitis Of Arm, Left Discharge Discharge Diagnosis / Problem: Left Arm Cellulitis Activity Recommendations . Current Hospital Diet Patient's current hospital diet: AHA Diet (Heart Healthy) Medical Emergencies . Who to Call and When: Medical Emergencies: If at any time you feel your situation is an emergency, please call 911 immediately. . Non-Emergent Contact . . "Provider Documentation" section prepared by Jorden Bowman. .
[2018-03-22 16:12] VITALS: BP 119/73; PULSE 71; TEMP 36.7; O2SAT 96
--- NOTE | 2018-03-22 16:26 | Discharge Instructions ---
Discharge Instructions Date of Service Mar 22, 2018. Admission Reason for Admission: Cellulitis Of Arm, Left Discharge Discharge Diagnosis / Problem: Left Arm Cellulitis Discharge Goals Goal(s): Decrease discomfort, Therapeutic intervention, Prevent Disease Progression Activity Recommendations Activity Limitations: resume your previous activity . Instructions / Follow-Up Instructions / Follow-Up You were admitted to the hospital for an infection of your left arm. You have been started on a new medication, doxycycline. Please take 1 capsule (100mg) of Doxycycline twice daily for the next 12 days. Please DO NOT continue taking the Bactrim you were on prior to your hospital admission if you have any remaining. Please keep the wound clean and dressed as instructed by wound care. A followup has been made with your primary care provider Roxann Ordoñez and wound care. They will call to confirm their appointments with you. If you do not receive a call, or need to reschedule please call your Primary Care Provider at [phone] and wound care at . If your arm worsens, becomes painful, or you develop fever, chills, night sweats, difficulty breathing, increased swelling, or a rash please call your primary care provider at [phone] or go to the emergency department if you are concerned. Current Hospital Diet Patient's current hospital diet: AHA Diet (Heart Healthy) Discharge Diet Recommended Diet: Regular Diet Pending Studies Studies pending at discharge: no Medical Emergencies . Who to Call and When: Medical Emergencies: If at any time you feel your situation is an emergency, please call [phone] immediately. . Non-Emergent Contact Non-Emergency issues call your: Primary Care Provider Contact Number: [phone] Call Non-Emergent contact if: you have a fever, your pain is worsening, your pain is unusual for you, your pain is concerning you, wound has increased drainage, wound has increased redness, wound has increased pain . Past History Medical & Surgical History: (1) Laceration (2) Cellulitis of arm, left (3) Failure of outpatient treatment . "Provider Documentation" section prepared by Jorden Bowman. .
--- NOTE | 2018-03-22 16:31 | Discharge Summary ---
Discharge Summary Date of Service Mar 22, 2018. Discharge Summary Admission Date: Mar 21, 2018 at 17:27 Discharge Date: Mar 22, 2018 Discharge Disposition: Home Principal Diagnosis: Left Arm Cellulitis Immunizations: Have You Had Influenza Vaccine: No History of Tetanus Vaccine?: utd History of Pneumococcal: No History of Hepatitis B Vaccine: No Discharge Exam Review of Systems: Constitutional: No fever, No chills, No sweats, No weakness, No fatigue, No problem reported ENT: No nasal symptoms, No sore throat Respiratory: No cough, No wheezing, No shortness of breath, No dyspnea on exertion, No dyspnea at rest, No hemoptysis Cardiovascular: No chest pain, No edema, No palpitations Abdomen: No pain, No nausea, No vomiting, No diarrhea, No constipation Musculoskeletal: No joint pain, No muscle pain, No swelling Genitourinary - Male: No dysuria Neurologic: No weakness, No numbness/tingling Endocrine: No fatigue Hematologic / Lymphatic: No abnormal bleeding/bruising, No swollen lymph nodes Integumentary: + problem reported (improving cellulitis of L forearm), No new/changing skin lesions Physical Exam: General Appearance: WD/WN, no apparent distress Eyes: PERRL, EOMI, sclerae normal ENT: hearing grossly normal Neck: supple, no adenopathy, no JVD, trachea midline Respiratory/Chest: chest non-tender, lungs clear, normal breath sounds, no respiratory distress, no accessory muscle use Cardiovascular: regular rate, rhythm, no edema, no gallop, no JVD, no murmur , normal peripheral pulses Abdomen / GI: normal bowel sounds, non tender, soft, no organomegaly Extremities: no calf tenderness, + pertinent finding (Area of mild erythema ~3-4cm on left forearm. Without warmth, exudate, or pus. Healing lesion to dermis present near the proximal border of the cellulitis. No areas of fluctuance. Nontender to palpation.) Skin: normal color, warm/dry, no rash, + pertinent finding (See extremity description for L arm cellulitis.) Lymphatic: no adenopathy Hospital Course Mr. Darnell Aldrich is a 32yo M admitted for cellulitis worsening following 10 days of treatment with Bactrim. He fell into a ditch and sustained a laceration to his L forarm 2 weeks [employer]. He was initially treated with keflex for cellulitis. He was then admitted to the hospital on Mar 07- when his wound failed to improve. During his hospital stay culture was positive for MSSA. He was discharged on a 10 day course of Bactrim with outpatient followup to wound care. He reports that he missed two days of Bactrim towards the end of treatment , but otherwise took the medication as prescribed. He admitted after presenting to the hospital with worsening of his cellulitis and development of a stinging pain sensation. He was admitted and started on vancomycin and ceftriaxone. He had a leukocytosis which resolved over the next 48 hours. The area of cellulitis on his L arm improved clinically over the next day and was free of pus, discharge, and any areas of fluctuance. Given the location of his wound and a positive past urine culture concerning for polypharmacy he was converted to oral doxycycline. He was clinically well with good oral intake and stable for discharge on 03/22/18 and was discharged on an oral course of doxycycline with followup visits to his primary care provider and wound care. Total Time Spent: Greater than 30 minutes This includes examination of the patient, discharge planning, medication reconciliation, and communication with other providers. Discharge Instructions Please refer to the electronic Patient Visit Report (Discharge Instructions) for additional information. Follow-Up PCP Briana Ordoñez C.R.N.P Wound Care Additional Copies To Briana Ordoñez C.R.N.P Assessment/Plan Resident Physician Supervision Note: I was present with Dr. Bowman during the history and exam. I discussed the case with the resident and agree with the findings and plan as documented in the note. Any exceptions or clarifications are listed here: Pt seen and examined at bedside. No acute events overnight. Feels that his LUE wound is gradually improving though still draining purulent fluid on gauze. On inquiry, reports no other sharp trauma - the abrasion itself is healing and the linear kassi he reports is a 'scar' that opened up. Previous reports and toxicology reviewed. On examination, S1/S2 nl RRR no MCG. CTAB. LUE w/ improving intensity and area of erythematous, indurated rash surrounding open wound on the ventral FA in the area of a faded batman tattoo which is only minimally TTP. Cellulitis - based on recurrence and history, would complete course with doxycycline for better penetrance and coverage despite MSSA on previous eval. HTN - continue lisinopril, follow up for recheck as outpatient ADHD/Depression/Insomnia/Polypharmacy - multiple interacting substances concerning for development of physiologic KRYS v. tolerance. Would re-visit as outpatient and consider alternative treatment, especially w/ h/o +ve THC/ opiates on toxicology.
[2018-03-22] MEDS ORDERED: DOXYCYCLINE HYCLATE 100 MG CAP PO SCH (21:00)
[2018-03-24] MEDS ORDERED: VANCOMYCIN TROUGH ONE (09:30)
[2018-03-26] MEDS ORDERED: SNT/10 PO (00:41)
[2018-03-26] MEDS ORDERED: FLUT0.15 NAE (01:34)
[2018-03-26] MEDS ORDERED: LISD70CA PO (01:37)
[2018-03-26] MEDS ORDERED: OMEP40CA41 PO (03:54)
[2018-03-26] MEDS ORDERED: ATV/1 PO (03:54)
[2018-03-26] MEDS ORDERED: BUPR-79 PO (03:54)
[2018-03-26] MEDS ORDERED: LISI-729 PO (09:57)
[2018-03-26] MEDS ORDERED: IBUP-1050 PO (09:58)
== END 2018-03-22 17:10 | disposition home or self-care (01) | DRG 603 ==
LOC: C.EDB 20:39 → C.MSW 23:22 → ENRESERV 23:43 → OBSVTOIN 03-21 17:27
PROVIDERS: ADMIT Internal Medicine; ATTEND Family Medicine
DX: L03.114 Cellulitis of left upper limb (principal); I10 Essential (primary) hypertension; F90.9 Attention-deficit hyperactivity disorder, unspecified type; S51.809A Unspecified open wound of unspecified forearm, initial encounter; Z82.49 Family history of ischemic heart disease and other diseases of the circulatory system; F32.9 Major depressive disorder, single episode, unspecified; K21.9 Gastro-esophageal reflux disease without esophagitis; W19.XXXA Unspecified fall, initial encounter

== ENCOUNTER 2018-03-26 17:46 | Emergency (ER) | payer OTHER ==
[~2018-03-26] VITALS: Ht 175.3 cm; Wt 76.1 kg
[~2018-03-26 17:46] MED LIST changes: -ACET300T3 PO; +ATV/1 PO; +BUPR-79 PO; +DXY100 PO; +FLUT0.15 NAE; +IBUP-1050 PO; -LISD50CA4 PO; +LISD70CA PO; +LISI-729 PO; +OMEP40CA41 PO; +SNT/10 PO; -SULF800T23 PO
[2018-03-26 17:58] VITALS: TEMP 36.8; Ht 175.3 cm; Wt 76.1 kg
[2018-03-26] MEDS ORDERED: SODIUM CHLORIDE 0.9% 1000ML 1,000 ML IV STA (18:15)
[2018-03-26 18:45] LABS: BASO % 0.3 %; BASO ABS # 0.03 K/uL (0-0.2); EOS % 0.7 %; EOS ABS # 0.08 K/uL (0-0.5); HEMOGLOBIN 16.4 g/dL (14.0-18.0); IG# 0.04 K/uL (0.00-0.02); LYMPH % 20.9 %; LYMPH ABS # 2.27 K/uL (1.2-3.4); MEAN CELL VOLUME 93.1 fL (80-100); MEAN CORPUSCULAR HEMOGLOBIN 32.5 pg (25-34); MEAN CORPUSCULAR HGB CONC 34.9 g/dl (32-36); MEAN PLATELET VOLUME 9.8 fL (7.4-10.4); MONO % 11.4 %; MONO ABS # 1.24 K/uL (0.11-0.59); NEUT % 66.3 %; NEUT ABS # 7.18 K/uL (1.4-6.5); PLATELET COUNT 272 K/uL (130-400); RED CELL DISTRIBUTION WIDTH SD 47.3 fL (36.4-46.3); WHITE BLOOD COUNT 10.84 K/uL (4.8-10.8)
[2018-03-26 19:04] LABS: CREATININE 1.26 mg/dl (0.60-1.40)
--- NOTE | 2018-03-26 19:04 | EMERGENCY ROOM VISIT NOTE ---
History Report prepared by Sofía: Dr. Pandya Under the Supervision of: Dr. Manny Pandya M.D. First contact with patient: 18:02 Chief Complaint: WOUND INFECTION Stated Complaint: L ARM HAS BIG BLACK SPOT History of Present Illness The patient is a 32 year old male w/ PMHx cellulitis, pancreatitis, and alcohol abuse who presents to the Emergency Room with complaints of a kassi on his left arm. The patient does have a recent history of cellulitis secondary to road rash and was initially treated with Keflex and then subsequently was treated with Bactrim and then was switched to doxycycline. Patient is currently been taking the doxycycline twice daily. Patient did notice a black kassi on his left arm which presented today. The patient had not noticed it before. The patient denies any pressure tourniquets or trauma to the area. Patient has seen wound care most recently with Dr. Dyer. Kassi does have a mild associated ache. It is mild in nature. The kassi has been constant. He has not noticed anything that makes it better or worse. Source of History: patient Onset: Today Position: arm (left) Symptom Intensity: mild Quality: ache Timing: constant Modifying Factors (Worsening): other (none) Associated Symptoms: No fevers, No chills, No cough, No chest pain, No SOB Review of Systems See HPI for pertinent positives and negatives. A total of ten systems were reviewed and were otherwise negative. Past Medical & Surgical Medical Problems: (1) Alcohol abuse (2) Cellulitis of arm, left (3) Current drinker of alcohol (4) History of - depression (5) History of - suicidal ideation (6) Pancreatitis Family History FH: hypertension No pertinent family history Social History Smoking Status: Current Every Day Smoker Alcohol Use: heavy Drug Use: none Marital Status: single Housing Status: unknown Occupation Status: disabled Current/Historical Medications Scheduled Bupropion (Wellbutrin Sr), 150 MG PO TID Doxycycline Hyclate (Doxycycline Hyclate), 100 MG PO BID Ibuprofen (Advil), 400 MG PO UD Lisdexamfetamine Dimesylate (Vyvanse), 70 MG PO QAM Lisinopril (Zestril), 5 MG PO QAM Omeprazole (Prilosec), 40 MG PO QAM Zaleplon (Sonata), 20 MG PO HS Scheduled PRN Fluticasone Propionate (Nasal) (Flonase Allergy Relief), 1 SPRAY JESUS MANUEL BID PRN for Nasal Congestion Lorazepam (Ativan), 1 MG PO BID PRN for Anxiety/Agitation Allergies Coded Allergies: BEE STING (Verified Allergy, Severe, SHORTNESS OF BREATH, 03/08/18) SOAPCLEAN (Verified Allergy, Intermediate, HOSPITAL LAUNDRY DETERGENT-RASH , 03/08/18) Uncoded Allergies: PINE TREES (Allergy, Severe, SOB-HIVES AND RASH IF TOUCHES TREES, 06/09/17) Physical Exam Vital Signs Date Time Temp Pulse Resp B/P (MAP) Pulse Ox O2 Delivery O2 Flow Rate FiO2 03/26/18 20:04 89 18 139/87 99 03/26/18 17:58 36.8 105 20 159/97 97 Room Air Physical Exam GENERAL: Awake, alert, well-appearing, NAD HENT: Normocephalic, atraumatic. EYES: Normal conjunctiva. Sclera non-icteric. PERRL. No anisocoria. Jake's negative and no evidence of abrasion or ulceration of L cornea. Gross vision intact. No proptosis noted NECK: Supple. No nuchal rigidity. FROM. RESPIRATORY: CTAB, no rhonchi, wheezing, crackles CARDIAC: Tachycardic and regular, no MRG ABDOMEN: Soft, NTND, BS+ MSK: No chest wall TTP, no LE edema NEURO: GCS 15, CN 2-12 intact, moves all 4s on command; NVI distally to wound of LUE to MUR nerves SKIN: No rash or jaundice noted. Small wound thin and approx 3 cm across volar aspect L forearm, non blanching lesion distal to wound 4 x 2 cm volar aspect of L forearm. No fluctuance or drainage Medical Decision & Procedures Laboratory Results 03/26/18 18:30 Red Blood Count 5.05, Mean Corpuscular Volume 93.1, Mean Corpuscular Hemoglobin 32.5, Mean Corpuscular Hemoglobin Concent 34.9, Mean Platelet Volume 9.8, Neutrophils (%) (Auto) 66.3, Lymphocytes (%) (Auto) 20.9, Monocytes (%) (Auto) 11.4, Eosinophils (%) (Auto) 0.7, Basophils (%) (Auto) 0.3, Neutrophils # (Auto ) 7.18, Lymphocytes # (Auto) 2.27, Monocytes # (Auto) 1.24, Eosinophils # (Auto ) 0.08, Basophils # (Auto) 0.03 03/26/18 18:30 Test 03/26/18 18:30 White Blood Count 10.84 K/uL (4.8-10.8) Red Blood Count 5.05 M/uL (4.7-6.1) Hemoglobin 16.4 g/dL (14.0-18.0) Hematocrit 47.0 % (42-52) Mean Corpuscular Volume 93.1 fL (80-100) Mean Corpuscular Hemoglobin 32.5 pg (25-34) Mean Corpuscular Hemoglobin Concent 34.9 g/dl (32-36) Platelet Count 272 K/uL (130-400) Mean Platelet Volume 9.8 fL (7.4-10.4) Neutrophils (%) (Auto) 66.3 % Lymphocytes (%) (Auto) 20.9 % Monocytes (%) (Auto) 11.4 % Eosinophils (%) (Auto) 0.7 % Basophils (%) (Auto) 0.3 % Neutrophils # (Auto) 7.18 K/uL (1.4-6.5) Lymphocytes # (Auto) 2.27 K/uL (1.2-3.4) Monocytes # (Auto) 1.24 K/uL (0.11-0.59) Eosinophils # (Auto) 0.08 K/uL (0-0.5) Basophils # (Auto) 0.03 K/uL (0-0.2) RDW Standard Deviation 47.3 fL (36.4-46.3) RDW Coefficient of Variation 14.0 % (11.5-14.5) Immature Granulocyte % (Auto) 0.4 % Immature Granulocyte # (Auto) 0.04 K/uL (0.00-0.02) Anion Gap 11.0 mmol/L (3-11) Est Creatinine Clear Calc Drug Dose 85.8 ml/min Estimated GFR () 88.1 Estimated GFR (Non- 76.0 BUN/Creatinine Ratio 9.6 (10-20) Calcium Level 9.5 mg/dl (8.5-10.1) Laboratory results reviewed by me Medications Administered Medications (Trade) Dose Ordered Sig/Osiel Route Start Time Stop Time Status Last Admin Dose Admin Sodium Chloride 1,000 ml @ 999 mls/hr Q1H1M STAT IV 03/26/18 18:15 03/26/18 19:15 DC 03/26/18 18:37 999 MLS/HR Medical Decision The patient is a 32 year old male w/ PMHx cellulitis, pancreatitis, and alcohol abuse who presents to the Emergency Room with complaints of a kassi on his left arm. Nursing notes reviewed. Ancillary studies and prior records reviewed. Differential diagnosis: Etiologies such as bruise, coagulopathy, cellulitis, abscess, MRSA infection, DVT, necrotizing fasciitis, dermatitis, drug eruption, as well as others were entertained. Patient was seen and evaluated the bedside. The patient did have a recent history of injury secondary to road rash and then had developed a subsequent cellulitis. The patient had been trialed on a course of Keflex and then returned at which point he was treated as an inpatient and discharged on Bactrim. The patient has followed up with wound care and was recently switched to doxycycline. Review of the patient's prior sensitivities it is sensitive to tetracycline. The patient does appear to have an area of nonblanching dark redness over the forearm just distal to a small wound which is very well- appearing. The patient denies any recent trauma denies any recent pressure to the area. The patient denies any easy bruising. Of note the patient also did complain of some possible foreign body and blurry vision of the left eye. The patient does not use contact lenses but does use glasses for far vision. Patient did have blood work completed. The patient does have noted hypokalemia which the patient was told he may replete at home. The patient does not have any evidence of coagulopathy as the patient has a normal H&H and platelet count. White blood cell count 10,000. Fairly unchanged compared to prior. Patient was counseled on smoking cessation to promote continued wound healing. I do not believe that this is an area of infection. No coagulation studies were obtained at this time as the patient does not take any blood thinning medication. The patient denies any other spontaneous or gingival bleeding or bruising and no epistaxis. I did discuss that the patient should return if he has any worsening symptoms fever or if the area blisters. I believe coagulopathy less likely. This may been related to pressure but does appeared to be almost like an area of petechiae as of pressure have been applied to the area. The patient is neurovascularly intact distally. He denies any trauma so no imaging was obtained at this time. There is no evidence of any fluid collection or fluctuance or erythema that would indicate that the area would need to be drained. The patient was told to continue his doxycycline. The patient does have a follow-up with his primary care this week. The patient's eye was stained and there is no evidence of any abrasion or foreign body. Patient was told to follow-up with his eye doctor as well as his PCP as needed for any worsening blurry vision. Patient was given strict follow-up, discharge , and return precautions. All questions were answered. Patient was deemed suitable for outpatient follow-up at this time. Patient agreed with the plan of care and was safely discharged home. Medication Reconcilliation Current Medication List: was personally reviewed by me Blood Pressure Screening Patient's blood pressure: Elevated blood pressure Blood pressure disposition: Referred to PCP Impression Primary Impression: Ecchymosis of forearm Additional Impressions: Hypokalemia Blurred vision, left eye Encounter for smoking cessation counseling Scribe Attestation The scribe's documentation has been prepared under my direction and personally reviewed by me in its entirety. I confirm that the note above accurately reflects all work, treatment, procedures, and medical decision making performed by me. Departure Information Dispostion Home / Self-Care Referrals Briana Ordoñez C.R.N.P (PCP) Patient Instructions ED Blurred Vision, ED RICE, My [facility] Additional Instructions Please return to the emergency department if you have worsening or recurrent symptoms not amenable to at-home treatment. Please call for a follow-up appointment with her primary care physician. Please take your medications as prescribed. If you have other concerns and/or complaints please feel free to also call your primary care physician's office or return the ED for further evaluation, management, and treatment. You may take 600 mg Ibuprofen every 6 hours as needed for pain/fever with food unless told by your physician not to take NSAIDs. You may take tylenol 650 mg every 6 hours as needed for pain/fever unless told by your physician to not take it or have liver problems. You may take motrin and tylenol separately or at the same time. Take your medications as prescribed. If taking an antibiotic consider taking a probiotic and/or eating yogurt, but at the least, please take with food as it can cause upset stomach. Please follow-up with your primary care physician and discuss the bruise that she have over your left forearm. If it does assembler metal building blister you develop fever please return for further evaluation and treatment. Please follow-up with your primary care physician as well as your eye doctor if you have persistent blurry vision. You have been examined and treated today on an emergency basis only. This is not a substitute for, or an effort to provide, complete comprehensive medical care. It is impossible to recognize and treat all injuries or illnesses in a single emergency department visit. It is therefore important that you follow up closely with [facility], your PCP, and/or your specialist(s). Call as soon as possible for an appointment. Thank you for your time and consideration. I look forward to speaking with you again soon. Please don't hesitate to call us if you have any questions. Problem Qualifiers
[2018-03-26 19:05] LABS: CALCIUM 9.5 mg/dl (8.5-10.1)
[2018-03-26 20:04] VITALS: BP 139/87; PULSE 89; O2SAT 99
== END 2018-03-26 20:06 | disposition home or self-care (01) ==
LOC: C.EDB 17:47
DX: R58 Hemorrhage, not elsewhere classified (principal); E87.6 Hypokalemia; H53.8 Other visual disturbances; R03.0 Elevated blood-pressure reading, without diagnosis of hypertension; F17.200 Nicotine dependence, unspecified, uncomplicated; F32.9 Major depressive disorder, single episode, unspecified; Z79.899 Other long term (current) drug therapy; Z91.030 Bee allergy status; Z91.048 Other nonmedicinal substance allergy status